=== PATIENT | male | born 1955 | race Caucasian/White ===

== ENCOUNTER 2024-04-18 09:38 | Observation (INO) | payer MEDICARE ==
[2024-04-18] MEDS ORDERED: Famotidine/PF 20 mg/2ml Vial ONE (10:21)
[2024-04-18] MEDS ORDERED: Aspirin 325 MG TAB ONE (10:21)
[2024-04-18 10:59] LABS: #Basophils 0.03 10x3/uL (0.0-0.2); #Eosinophils 0.08 10x3/uL (0.0-0.5); #Monocytes 1.32 10x3/uL (0.0-1.1); #Neutrophils 10.14 10x3/uL (1.5-8.4); %Basophils 0.2 % (0.0-2.0); %Eosinophils 0.6 % (0.0-6.0); %Lymphocytes 8.3 % (18.0-47.0); %Monocytes 10.4 % (0.0-10.0); %Neutrophils 79.8 % (40.0-75.0); Hematocrit 40.1 % (38.8-50.0); Hemoglobin 13.4 g/dL (13.5-17.5); Mean Corpuscular HGB CONC 33.4 g/dL (32.0-36.0); Mean Corpuscular Volume 89.7 fL (81.2-95.1); Mean Platelet Volume 9.8 fL (7.4-10.4); Platelet Count 302 10x3/uL (150-450); RBC Distribution Width 13.8 % (11.5-14.5); Red Blood Cell (RBC) Count 4.47 10x6/uL (4.32-5.72); White Blood Cell (WBC) Count 12.71 10x3/uL (3.5-10.5)
[2024-04-18 11:18] LABS: ALT (SGPT) 28 U/L (Less than 45); AST (SGOT) 25 U/L (11-34); Albumin 3.8 g/dL (3.1-4.5); Alkaline Phosphatase 74 U/L (40-110); Anion Gap 17 mmol/L (10-20); BUN (Urea Nitrogen) 28 mg/dL (8.4-25.7); Bilirubin, Total 0.5 mg/dL (0.3-1.2); Calc. Creatinine Clearance 0 mL/min (70-130); Calcium 9.7 mg/dL (7.8-10.44); Carbon Dioxide 16 mmol/L (23-31); Chloride 110 mmol/L (98-107); Estimated GFR 64; Globulin 3.3 g/dL (2.4-3.5); Glucose 83 mg/dL (80-115); Lipase 31 U/L (8-78); Potassium 4.8 mmol/L (3.5-5.1); Protein, Total 7.1 g/dL (5.8-8.1); Sodium 138 mmol/L (136-145)
[2024-04-18 11:19] LABS: Troponin I Less than 0.010 ng/mL (< 0.028)
[2024-04-18 15:08] LABS: Troponin I 0.027 ng/mL (< 0.028)
[2024-04-18] MEDS ORDERED: Nitroglycerin 0.4 MG TAB (25 Tab Bottle) SL PRN (15:35)
[2024-04-18 16:47] LABS: Troponin I Less than 0.010 ng/mL (< 0.028)
[2024-04-18 19:20] VITALS: BMI 35.2
[2024-04-18 19:25] LABS: Troponin I Less than 0.010 ng/mL (< 0.028)
[2024-04-18] MEDS: Atorvastatin Calcium 40 MG TAB PO SCH (21:46)
[2024-04-19 04:48] VITALS: BP 109/62
[2024-04-19 04:50] VITALS: TEMP 98.3
[2024-04-19 05:10] LABS: Anion Gap 13 mmol/L (10-20); BUN (Urea Nitrogen) 25 mg/dL (8.4-25.7); Calc. Creatinine Clearance 94 mL/min (70-130); Calcium 8.9 mg/dL (7.8-10.44); Carbon Dioxide 19 mmol/L (23-31); Cardiac Risk 3.2 (Less than 4.5); Chloride 110 mmol/L (98-107); Cholesterol 135 mg/dl (< 200 Desired); Estimated GFR 66; Glucose 89 mg/dL (80-115); HDL Cholesterol 42 mg/dL (>60 Neg Risk); LDL Cholesterol, Calculated 76 mg/dL; Potassium 4.8 mmol/L (3.5-5.1); Sodium 137 mmol/L (136-145); Triglycerides 85 mg/dL (Less than 150)
[2024-04-19 05:12] LABS: #Basophils 0.04 10x3/uL (0.0-0.2); #Monocytes 0.76 10x3/uL (0.0-1.1); #Neutrophils 5.12 10x3/uL (1.5-8.4); %Basophils 0.5 % (0.0-2.0); %Eosinophils 1.3 % (0.0-6.0); %Lymphocytes 20.3 % (18.0-47.0); %Neutrophils 67.2 % (40.0-75.0); Hematocrit 35.7 % (38.8-50.0); Hemoglobin 12.3 g/dL (13.5-17.5); Mean Corpuscular HGB CONC 34.5 g/dL (32.0-36.0); Mean Corpuscular Volume 89.9 fL (81.2-95.1); Mean Platelet Volume 9.3 fL (7.4-10.4); Platelet Count 313 10x3/uL (150-450); RBC Distribution Width 13.9 % (11.5-14.5); Red Blood Cell (RBC) Count 3.97 10x6/uL (4.32-5.72); White Blood Cell (WBC) Count 7.62 10x3/uL (3.5-10.5)
[2024-04-19] MEDS ORDERED: traMADol HCl 50 MG TAB PO PRN (08:19)
[2024-04-19] MEDS ORDERED: LYCOPEN PO SCH (09:00)
[2024-04-19] MEDS ORDERED: LUTEIN PO SCH (09:00)
[2024-04-19] MEDS ORDERED: TELMISARTAN 20 MG PO SCH (09:00)
[2024-04-19] MEDS ORDERED: Magnesium Oxide 250 MG TAB PO SCH (09:00)
[2024-04-19] MEDS ORDERED: Non-Formulary Medication 1 EACH (Magnesium Glycinate [Magnesium Glycinate] 100 MG Capsule) PO SCH (09:00)
[2024-04-19] MEDS ORDERED: FOLIC PO SCH (09:00)
[2024-04-19] MEDS ORDERED: MV MIN PO SCH (09:00)
[2024-04-19] MEDS ORDERED: Aspirin 81 mg Enteric Coated Tablet PO SCH (09:00)
[2024-04-19] MEDS ORDERED: [UNRECOGNIZED DRUG - OTHER] PO SCH (09:00)
[2024-04-19] MEDS ORDERED: Amlodipine 5 MG TAB PO SCH (09:00)
[2024-04-19] MEDS ORDERED: Multivitamin W/ Minerals 1 TAB PO SCH (09:00)
[2024-04-19] MEDS ORDERED: Enoxaparin 40 MG (0.4 mL) SYRINGE SC SCH (09:00)
[2024-04-19] MEDS ORDERED: K1 PO SCH (09:00)
[2024-04-19] MEDS ORDERED: Losartan 50 MG TAB PO SCH (09:00)
[2024-04-19] MEDS ORDERED: metFORMIN 500 MG TAB PO SCH (21:00)
[2024-04-19] MEDS ORDERED: Atorvastatin Calcium 40 MG TAB PO SCH (21:00)
== END 2024-04-19 10:35 | disposition home or self-care (01) ==
LOC: CSHERS 09:38 → CSHTELE 15:35
PROVIDERS: ADMIT Hospitalist; ATTEND Hospitalist
DX: R07.9 Chest pain, unspecified (principal); I10 Essential (primary) hypertension; E78.5 Hyperlipidemia, unspecified; Z90.89 Acquired absence of other organs; Z88.5 Allergy status to narcotic agent; Z79.84 Long term (current) use of oral hypoglycemic drugs; Z79.1 Long term (current) use of non-steroidal anti-inflammatories (NSAID); Z79.899 Other long term (current) drug therapy
CPT/HCPCS: 71045; 71046; 80048; 80053; 80061; 83690; 84484 ×2; 85025 ×2; 93005; 96374; 99285; G0378 ×2; J3490; 36415; 36416